=== PATIENT | male | born 1970 | race Caucasian/White ===

== ENCOUNTER 2018-04-15 14:37 | Emergency (ER) | payer OTHER ==
[~2018-04-15] VITALS: Ht 188 cm; Wt 91.6 kg
[2018-04-15] MEDS ORDERED: DEXAMETHASONE SOD PHOSPHATE 10 MG/ML VIAL ONE (15:23)
[2018-04-15] MEDS ORDERED: ONDANSETRON 4 MG TAB.RAPDIS ONE (15:24)
[2018-04-15] MEDS ORDERED: HYDROMORPHONE 1 MG/1 ML DISP.SYRIN ONE (15:24)
[2018-04-15] MEDS ORDERED: ONDANSETRON 4 MG TAB.RAPDIS PO ONE (15:30)
[2018-04-15] MEDS ORDERED: HYDROMORPHONE 1 MG/1 ML DISP.SYRIN IM ONE (15:30)
[2018-04-15] MEDS ORDERED: DEXAMETHASONE SOD PHOSPHATE 4 MG/ML VIAL IM ONE (15:30)
--- NOTE | 2018-04-15 15:35 | NUR ---
c/o lower back pain after bending down this am, no trauma. PT AAOX3, VSS. DENIES DIZZINESS, N/V, CP, SOB @ THIS TIME. PT SEEN & EVAL'D BY ANEL CORDERO. WILL CONT TO MONITOR.
--- NOTE | 2018-04-15 15:36 | NUR ---
MEDICATED FOR PAIN PER PA'S ORDER, PT JACLYN WELL.
[2018-04-15] MEDS ORDERED: KETOROLAC TROMETHAMINE INJ 30 MG/ML VIAL ONE (17:18)
[2018-04-15] MEDS ORDERED: CYCLOBENZAPRINE 10 MG TABLET ONE (17:18)
[2018-04-15] MEDS ORDERED: KETOROLAC TROMETHAMINE INJ 60 MG/2 ML VIAL IM ONE (17:30)
[2018-04-15] MEDS ORDERED: CYCLOBENZAPRINE 10 MG TABLET PO ONE (17:30)
--- NOTE | 2018-04-15 18:10 | NUR ---
Patient discharged to home in stable condition. Written and verbal after care instructions given. Patient verbalizes understanding of instruction.
[2018-04-15 18:11] VITALS: BP 136/88
== END 2018-04-15 18:13 | disposition home or self-care (01) ==
LOC: ER 14:48
DX: M54.5 Low back pain (principal)
CPT/HCPCS: 96372 ×2; 99284; A4606; J1100; J1170; J1885; Q0162; Z7610

== ENCOUNTER 2022-01-04 22:15 | Emergency (ER) | payer SELFPAY ==
[~2022-01-04] VITALS: Ht 188 cm; Wt 88.5 kg
[2022-01-04 22:27] VITALS: BP 169/91
== END 2022-01-04 23:29 | disposition home or self-care (01) ==
LOC: ER 22:18
DX: R04.1 Hemorrhage from throat (principal)